=== PATIENT | female | born 1960 | race Caucasian/White ===

== ENCOUNTER 2019-05-04 14:21 | Emergency (ER) | payer OTHER ==
[~2019-05-04] VITALS: Ht 172.7 cm; Wt 59.0 kg
--- NOTE | 2019-05-04 14:41 | ED Chest Pain ---
General Chief Complaint: Chest Pain Stated Complaint: CHEST PAIN Source: patient Exam Limitations: no limitations History of Present Illness Date Seen by Provider: May 04, 2019 Time Seen by Provider: 14:15 Initial Comments Patient is a 58-year-old female with history of CAD with multiple stent placements who presents with intermittent dyspnea with exertion for the past several days. Patient states she is very active and runs on the treadmill every other day and is active at work climbing this stairwells. She states she has been unable to read on the treadmill greater than 3 minutes today without becoming very short of breath and that she has reports palpitations with shortness of breath after climbing stairs at work. Patient states shortness of breath is markedly different than her baseline exercise capacity. Patient has chest pain, chest tightness. Denies leg pain or swelling. Denies paroxysmal nocturnal dyspnea orthopnea. No fever chills, nausea vomiting or sweats. Reports chronic smoker's cough. Denies history of asthma, COPD or PE. No other acute symptoms or complaints. 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 Hernandez Kaplan of [facility]. Timing/Duration: 1 week, intermittent Severity/Quality: moderate Location: other Radiation: other Prior CP/Workup: cardiac cath Modifying Factors: improves with oxygen ASA po APPLIED TECHNOLOGIST: Yes NTG SL APPLIED TECHNOLOGIST: No Associated Symptoms: shortness of breath Allergies and Home Medications Allergies Coded Allergies: No Known Drug Allergies (Unverified , 05/04/19) Patient Home Medication List Home Medication List Reviewed: Yes Review of Systems Review of Systems Constitutional: see HPI EENTM: See HPI Respiratory: See HPI Cardiovascular: See HPI Gastrointestinal: See HPI Genitourinary: See HPI Musculoskeletal: see HPI Skin: see HPI Psychiatric/Neurological: See HPI Endocrine: See HPI Hematologic/Lymphatic: See HPI Past Hzaiixy-Elaplb-Axrtpk Hx Past Med/Social Hx: Reviewed Nursing Past Med/Soc Hx Physical Exam Vital Signs Vital Signs - First Documented 05/04/19 14:34 Temp 96.3 Pulse 75 Resp 18 B/P (MAP) 158/81 (106) O2 Delivery Room Air Capillary Refill : Height, Weight, BMI Height: '" Weight: lbs. oz. kg; BMI Method: General Appearance: No Apparent Distress, WD/WN HEENT: PERRL/EOMI, Normal ENT Inspection, Pharynx Normal Neck: Non Tender, Supple Respiratory: Chest Non Tender, Lungs Clear, Other ([place] diminished breath sounds but otherwise clear.) Cardiovascular: Regular Rate, Rhythm, No Edema, No Gallop, No Murmur, Tachycardia, Other (negative Homans signs.) Neurologic/Psychiatric: Alert, Oriented x3, seamless tube roller II-XII Norm as Tested Skin: Normal Color, Warm/Dry Focused Exam Sepsis Stage: Ruled Out Progress/Results/Core Measures Results/Orders Lab Results Laboratory Tests Test 05/04/19 14:23 Range/Units White Blood Count 7.2 4.3-11.0 10^3/uL Red Blood Count 4.58 4.35-5.85 10^6/uL Hemoglobin 13.5 11.5-16.0 G/DL Hematocrit 41 35-52 % Mean Corpuscular Volume 90 80-99 FL Mean Corpuscular Hemoglobin 29 25-34 PG Mean Corpuscular Hemoglobin Concent 33 32-36 G/DL Red Cell Distribution Width 13.5 10.0-14.5 % Platelet Count 247 130-400 10^3/uL Mean Platelet Volume 9.6 7.4-10.4 FL Neutrophils (%) (Auto) 43 42-75 % Lymphocytes (%) (Auto) 47 H 12-44 % Monocytes (%) (Auto) 8 0-12 % Eosinophils (%) (Auto) 1 0-10 % Basophils (%) (Auto) 1 0-10 % Neutrophils # (Auto) 3.1 1.8-7.8 X 10^3 Lymphocytes # (Auto) 3.4 1.0-4.0 X 10^3 Monocytes # (Auto) 0.6 0.0-1.0 X 10^3 Eosinophils # (Auto) 0.1 0.0-0.3 10^3/uL Basophils # (Auto) 0.1 0.0-0.1 10^3/uL D-Dimer 0.49 0.00-0.49 UG/ML Sodium Level 139 135-145 MMOL/L Potassium Level 3.7 3.6-5.0 MMOL/L Chloride Level 99 98-107 MMOL/L Carbon Dioxide Level 27 21-32 MMOL/L Anion Gap 13 5-14 MMOL/L Blood Urea Nitrogen 10 7-18 MG/DL Creatinine 0.73 0.60-1.30 MG/DL Estimat Glomerular Filtration Rate > 60 BUN/Creatinine Ratio 14 Glucose Level 105 70-105 MG/DL Calcium Level 9.2 8.5-10.1 MG/DL Corrected Calcium 9.0 8.5-10.1 MG/DL Total Bilirubin 0.3 0.1-1.0 MG/DL Aspartate Amino Transf (AST/SGOT) 24 5-34 U/L Alanine Aminotransferase (ALT/SGPT) 22 0-55 U/L Alkaline Phosphatase 88 40-136 U/L Troponin I < 0.30 <0.30 NG/ML Pro-B-Type Natriuretic Peptide 184.9 H <75.0 PG/ML Total Protein 7.1 6.4-8.2 GM/DL Albumin 4.3 3.2-4.5 GM/DL My Orders Orders - TOMI EUCEDA DO Cbc With Automated Diff (05/04/19 14:28) Comprehensive Metabolic Panel (05/04/19 14:28) Troponin I (05/04/19 14:28) Chest 1 View Ap/Pa Only (05/04/19 14:28) Ekg Tracing (05/04/19 14:28) Probnp Fs (05/04/19 14:30) Fibrin Degradation Products (05/04/19 14:31) Vital Signs/I&O 05/04/19 14:34 Temp 96.3 Pulse 75 Resp 18 B/P (MAP) 158/81 (106) O2 Delivery Room Air Departure Communication (Admissions) EKG: Normal sinus rhythm, no acute ST-T wave changes, rate 71. Impression Primary Impression: Dyspnea on exertion Additional Impression: Elevated brain natriuretic peptide (BNP) level Disposition: 01 HOME, SELF-CARE Condition: Improved Departure-Patient Inst. Decision time for Depature: 15:12 Referrals: [facility] (PCP) Primary Care Physician PETER BILL APRN (Family) Primary Care Physician Patient Instructions: Shortness of Breath (Dyspnea) Add. Discharge Instructions: You were evaluated in the emergency department for shortness of breath. Lab EKG and chest x-ray were performed. Your exam and findings are concerning for angina with exertion and exercise. Please avoid strenuous physical activity, stairs, treadmills etc... and contact your household appliances service technician to schedule stress test in the next 2 weeks. In the meantime, if you develop new or worsening symptoms, return to ED. All discharge instructions reviewed with patient and/or family. Voiced understanding. TOMI EUCEDA DO May 04, 2019 14:41
[2019-05-04 14:54] LABS: HEMATOCRIT 41 % (35-52); HEMOGLOBIN 13.5 G/DL (11.5-16.0); MEAN CORPUSCULAR HEMOGLOBIN 29 PG (25-34); MEAN CORPUSCULAR VOLUME 90 FL (80-99); WHITE BLOOD COUNT 7.2 10^3/uL (4.3-11.0)
[2019-05-04 14:55] LABS: BASOPHILS # (AUTO) 0.1 10^3/uL (0.0-0.1); BASOPHILS % (AUTO) 1 % (0-10); EOSINOPHILS # (AUTO) 0.1 10^3/uL (0.0-0.3); EOSINOPHILS % (AUTO) 1 % (0-10); LYMPHOCYTES # (AUTO) 3.4 X 10^3 (1.0-4.0); LYMPHOCYTES % (AUTO) 47 % (12-44); MEAN CORPUSCULAR HGB CONC 33 G/DL (32-36); MEAN PLATELET VOLUME 9.6 FL (7.4-10.4); MONOCYTES # (AUTO) 0.6 X 10^3 (0.0-1.0); MONOCYTES % (AUTO) 8 % (0-12); NEUTROPHILS # (AUTO) 3.1 X 10^3 (1.8-7.8); NEUTROPHILS % (AUTO) 43 % (42-75); PLATELET COUNT 247 10^3/uL (130-400); RED CELL DISTRIBUTION WIDTH 13.5 % (10.0-14.5)
--- NOTE | 2019-05-04 15:00 | Diagnostic Imaging Report ---
INDICATION: Shortness of breath. TIME OF EXAM: 02:34 p.m. COMPARISON: No prior studies are available for comparison. FINDINGS: The heart size is normal. The pulmonary vascularity is unremarkable. The lungs are clear. No infiltrate, effusion or pneumothorax is detected. IMPRESSION: No acute cardiopulmonary process is detected. Dictated by: Dictated on workstation # [id number]
[2019-05-04 15:03] LABS: SODIUM 139 MMOL/L (135-145)
[2019-05-04 15:04] LABS: ALANINE AMINOTRANSFERASE 22 U/L (0-55); ALBUMIN 4.3 GM/DL (3.2-4.5); ALKALINE PHOSPHATASE 88 U/L (40-136); BILIRUBIN,TOTAL 0.3 MG/DL (0.1-1.0); BUN/CREATININE RATIO 14; CALCIUM 9.2 MG/DL (8.5-10.1); CARBON DIOXIDE 27 MMOL/L (21-32); CHLORIDE 99 MMOL/L (98-107); CREATININE SERUM 0.73 MG/DL (0.60-1.30); GFR ESTIMATED > 60; GLUCOSE 105 MG/DL (70-105); POTASSIUM 3.7 MMOL/L (3.6-5.0); TOTAL PROTEIN 7.1 GM/DL (6.4-8.2)
[2019-05-04 15:30] VITALS: BP 122/67
== END 2019-05-04 15:30 | disposition home or self-care (01) ==
LOC: EDUNIT# 14:21 → ER FS 14:23
DX: R06.09 Other forms of dyspnea (principal); R79.89 Other specified abnormal findings of blood chemistry; I25.10 Atherosclerotic heart disease of native coronary artery without angina pectoris; Z95.5 Presence of coronary angioplasty implant and graft
CPT/HCPCS: 36415; 71045; 80053; 83880; 84484; 85025; 85379; 93005

== ENCOUNTER 2020-03-07 20:20 | Emergency (ER) | payer OTHER ==
[~2020-03-07] VITALS: Ht 172.7 cm; Wt 62.7 kg
[2020-03-07 20:28] VITALS: BP 145/76
[2020-03-07] MEDS ORDERED: AMOXICILLIN 500 MG (POLYMOX) CAP PO STA (20:40)
[2020-03-07] MEDS ORDERED: AMOX500C2 PO (20:40)
--- NOTE | 2020-03-07 20:40 | ED EENT ---
History of Present Illness General Chief Complaint: Skin/Wound Problems Stated Complaint: LUMP BEHIND EAR/NECK Source: patient History of Present Illness Date Seen by Provider: Mar 07, 2020 Time Seen by Provider: 20:22 Initial Comments 59-year-old female woke up with area of tenderness and small amount of swelling at the left angle of her jaw. This is been present all day but was worse tonight. She felt like there is increased swelling and was more painful when she was eating. She has pressure sensation in her ear and is concerned she may have an ear infection or something stuck in her ear. She denies any fever or chills. She has no nasal congestion or drainage. She does have dentures but denies any pain or discomfort where they sit against her jaw Allergies and Home Medications Allergies Coded Allergies: No Known Drug Allergies (Unverified , 05/04/19) Home Medications Amoxicillin 500 Mg Capsule, 500 MG PO TID Prescribed by: YOANA BENDER on 03/07/202039 Patient Home Medication List Home Medication List Reviewed: Yes Review of Systems Review of Systems Constitutional: No chills, No dizziness, No fever Eyes: No Symptoms Reported Ears: See HPI Nose: no symptoms reported Mouth: no symptoms reported Throat: no symptoms reported Respiratory: no symptoms reported Gastrointestinal: no symptoms reported Musculoskeletal: no symptoms reported Skin: no symptoms reported Neurological: No Symptoms Reported Past Wkazzsb-Xbiqhp-Fyakhn Hx Past Med/Social Hx: Reviewed Nursing Past Med/Soc Hx Patient Social History Alcohol Use: Denies Use Recreational Drug Use: No Type Used: Cigarettes 2nd Hand Smoke Exposure: No Recent Foreign Travel: No Contact w/Someone Who Travel: No Recent Infectious Disease Expo: No Recent Hopitalizations: No Physical Abuse: No Sexual Abuse: No Mistreated: No Fear: No Seasonal Allergies Seasonal Allergies: No Past Medical History Surgeries: Yes (skin melanoma removed) Coronary Stent Respiratory: No Cardiac: Yes Heart Attack, High Cholesterol, Irregular Heartbeat, Palpitations Neurological: No Genitourinary: No Gastrointestinal: No Musculoskeletal: No Endocrine: No HEENT: No Cancer: Yes Psychosocial: No Integumentary: No Blood Disorders: No Physical Exam Vital Signs Vital Signs - First Documented 03/07/20 20:28 Temp 36.9 Pulse 80 Resp 18 B/P (MAP) 145/76 (99) Pulse Ox 97 O2 Delivery Room Air Height, Weight, BMI Height: 5'8.00" Weight: 130lbs. oz. 58.488353by; 21.00 BMI Method:Stated General Appearance: WD/WN, no apparent distress Eyes: bilateral eye normal inspection, bilateral eye PERRL, bilateral eye EOMI Ears: right ear canal normal, right ear TM normal; left ear auricle normal, left ear foreign body (cerumen impaction on the left) Nose: normal inspection Mouth/Throat: normal mouth inspection (edentulous); No pharynx swelling, No pharynx tenderness Neck: full range of motion, supple, normal inspection, lymphadenopathy (L) (small amount of swelling to the left angle of her jaw with tenderness to palpation) Cardiovascular: normal peripheral pulses, regular rate, rhythm Respiratory: chest non-tender, lungs clear, normal breath sounds Skin: normal color, warm/dry; No rash Progress/Results/Core Measures Results/Orders My Orders Orders - YOANA BENDER MD Amoxicillin Capsule (Polymox Capsule) (03/07/20 20:40) Vital Signs/I&O 03/07/20 20:28 Temp 36.9 Pulse 80 Resp 18 B/P (MAP) 145/76 (99) Pulse Ox 97 O2 Delivery Room Air Blood Pressure Mean: 99 Progress Progress Note : Progress Note Counseled on cerumen impaction. Will cover with an antibiotic for possible ear infection since I cannot visualize the TM on the left side. Counseled on follow- up and return precautions Advised there could be a blocked salivary gland causing some of the symptoms as well but her swelling and pain seems to be more around lymph nodes rather than salivary gland. Departure Impression Primary Impression: Impacted cerumen of left ear Additional Impression: Lymphadenopathy of left cervical region Disposition: 01 HOME, SELF-CARE Condition: Stable Departure-Patient Inst. Decision time for Depature: 20:37 Referrals: [facility]/[place] (PCP) Primary Care Physician PETER BILL APRN (Family) Primary Care Physician Patient Instructions: Ear Wax Impaction (DC), Lymphadenitis (DC) Add. Discharge Instructions: Use ear wax removal drops to help with pain and blocking of the ear canal. Take the full course of antibiotics and check with clinic for continued concerns. If not improving or having more symptoms you may need to see clinic or ENT for further evaluation. All discharge instructions reviewed with patient and/or family. Voiced understanding. Scripts Amoxicillin (Amoxicillin) 500 Mg Capsule 500 MG PO TID for 10 Days, #30 CAP 0 Refills Prov: YOANA BENDER MD 03/07/20 YOANA BENDER MD Mar 07, 2020 20:40
--- OUTSIDE RECORDS SUMMARY | 2020-03-07 22:04 | XMS REPORT | Continuity of Care Document ---
Author Organization Unknown Address Unknown Phone Unavailable Allergies Active Description Code Type Severity Reaction Onset Reported/Identified Relationship to Patient Clinical Status Yes No Known Drug Allergies [id number] Drug Allergy Unknown N/A 05/04/2019 Medications There is no data. Problems Date Dx Coded Attending Type Code Diagnosis Diagnosed By 05/04/2019 TOMI EUCEDA DO, Ot I25.10 ATHSCL HEART DISEASE OF [place] CORONARY 05/04/2019 TOMI EUCEDA DO, Ot R06.09 OTHER FORMS OF DYSPNEA 05/04/2019 TOMI EUCEDA DO, Ot R79.89 OTHER SPECIFIED ABNORMAL FINDINGS OF BLO 05/04/2019 TOMI EUCEDA DO, Ot Z95.5 PRESENCE OF CORONARY ANGIOPLASTY IMPLANT Procedures There is no data. Results Test Result Range Fibrin D-dimer FEU measurement in platel et poor plasma (mass/volume) - 05/04/19 14:23 Fibrin D-dimer FEU measurement in platelet poor plasma (mass/volume) 0.49 ug/mL 0.00-0.49 Complete blood count (CBC) with automate d white blood cell (WBC) differential - 05/04/19 14:23 Blood leukocytes automated count (number/volume) 7.2 10*3/uL 4.3-11.0 Blood erythrocytes automated count (number/volume) 4.58 10*6/uL 4.35-5.85 Venous blood hemoglobin measurement (mass/volume) 13.5 g/dL 11.5-16.0 Blood hematocrit (volume fraction) 41 % 35-52 Automated erythrocyte mean corpuscular volume 90 [ foz_us] 80-99 Automated erythrocyte mean corpuscular h emoglobin (mass per erythrocyte) 29 pg 25-34 Automated erythrocyte mean corpuscular h emoglobin concentration measurement (mass/volume) 33 g/dL 32-36 Automated erythrocyte distribution width ratio 13. 5 % 10.0- 14.5 Automated blood platelet count (count/volume) 247 10*3/uL 130-400 Automated blood platelet mean volume measurement 9.6 [foz_us] 7.4-10.4 Automated blood neutrophils/100 leukocytes 43 % 42-75 Automated blood lymphocytes/100 leukocytes 47 % 12-44 Blood monocytes/100 leukocytes 8 % 0-12 Automated blood eosinophils/100 leukocytes 1 % 0-10 Automated blood basophils/100 leukocytes 1 % 0-10 Blood neutrophils automated count (number/volume) 3.1 10*3 1.8-7.8 Blood lymphocytes automated count (number/volume) 3.4 10*3 1.0-4.0 Blood monocytes automated count (number/volume) 0. 6 10*3 0.0-1.0 Automated eosinophil count 0.1 10*3/uL 0 .0-0.3 Automated blood basophil count (count/volume) 0.1 10*3/uL 0.0-0.1 Comprehensive metabolic panel - 05/04/19 14:23 Serum or plasma sodium measurement (moles/volume) 139 mmol/L 135-145 Serum or plasma potassium measurement (moles/volume) 3.7 mmol/L 3.6-5.0 Serum or plasma chloride measurement (moles/volume) 99 mmol/L 98-107 Carbon dioxide 27 mmol/L 21-32 Serum or plasma anion gap determination (moles/volume) 13 mmol/L 5-14 Serum or plasma urea nitrogen measurement (mass/volume ) 10 mg/dL 7-18 Serum or plasma creatinine measurement (mass/volume) 0.73 mg/dL 0.60-1.30 Serum or plasma urea nitrogen/creatinine mass ratio 14 NRG Serum or plasma creatinine measurement w ith calculation of estimated glomerular filtration rate > NRG Serum or plasma glucose measurement (mass/volume) 105 mg/dL 70-105 Serum or plasma calcium measurement (mass/volume) 9.2 mg/dL 8.5-10.1 Serum or plasma total bilirubin measurement (mass/volu me) 0.3 mg/dL 0.1-1.0 Serum or plasma alkaline phosphatase panda surement (enzymatic activity/volume) 88 U/L 40-136 Serum or plasma aspartate aminotransfera se measurement (enzymatic activity/volume) 24 U/L 5-34 Serum or plasma alanine aminotransferase measurement (enzymatic activity/volume) 22 U/L 0-55 Serum or plasma protein measurement (mass/volume) 7.1 g/dL 6.4-8.2 Serum or plasma albumin measurement (mass/volume) 4.3 g/dL 3.2-4.5 CALCIUM CORRECTED 9.0 mg/dL 8.5-10.1 Serum or plasma troponin i.cardiac measu rement (mass/volume) - 05/04/19 14:23 Serum or plasma troponin i.cardiac measurement (mass/v olume) < ng/mL <0.30 PROBNP FS - 05/04/19 14:23 PROBNP FS 184.9 pg/mL <75.0 Encounters ACCT No. Visit Date/Time Discharge Status Pt. Type Provider Facility Loc./Unit Complaint [id number] 05/04/2019 14:23:00 019 15:30:00 DIS Emergency EUCEDA TOMI WILSON Via [facility] ER FS CHEST PAIN
== END 2020-03-07 20:46 ==
LOC: EDUNIT# 20:20 → ER FS 20:21
DX: H61.22 Impacted cerumen, left ear (principal); R59.1 Generalized enlarged lymph nodes; Z95.5 Presence of coronary angioplasty implant and graft; Z85.828 Personal history of other malignant neoplasm of skin
CPT/HCPCS: 99283

== ENCOUNTER 2022-02-14 18:28 | Emergency (ER) | payer OTHER ==
[~2022-02-14] VITALS: Ht 170.1 cm; Wt 62.7 kg
[~2022-02-14 18:28] MED LIST: AMOX500C2 PO
--- NOTE | 2022-02-14 18:35 | ED Cardiac General ---
History of Present Illness General Stated Complaint: HEARTRATE FLUCTUATING,LETHARGIC,DIZZY History of Present Illness Date Seen by Provider: February 14, 2022 Time Seen by Provider: 18:30 Initial Comments 61-year-old female presents with what she describes as her heart rate feels funny. She cannot necessarily describe it. She reports that it started when she sat down on the stool. That is about 15-20 minutes prior to arrival. Patient does report she has some anxiety but does not feel this is related. She does take lorazepam. Patient reports that she feels short of breath. Patient does have a prior heart history and is concerned because she has had a heart attack with stents in the past. Patient reports she feels little fatigued, mildly dizzy. She reports a mild cough. No fevers or chills. Allergies and Home Medications Allergies Coded Allergies: No Known Drug Allergies (Unverified , 05/04/19) Patient Home Medication List Home Medication List Reviewed: Yes Amoxicillin (Amoxicillin) 500 Mg Capsule, 500 MG PO TID Prescribed by: YOANA BENDER on 03/07/202039 Review of Systems Review of Systems Constitutional: No chills; dizziness, malaise Respiratory: Cough, Shortness of Air Cardiovascular: See HPI; Denies Chest Pain Gastrointestinal: No Symptoms Reported Genitourinary: No Symptoms Reported Musculoskeletal: no symptoms reported Skin: no symptoms reported Psychiatric/Neurological: No Symptoms Reported Endocrine: No Symptoms Reported Hematologic/Lymphatic: No Symptoms Reported Past Nwjmkof-Evrdek-Zcokgj Hx Seasonal Allergies Seasonal Allergies: No Past Medical History Surgeries: Yes (skin melanoma removed) Coronary Stent Respiratory: No Cardiac: Yes Heart Attack, High Cholesterol, Irregular Heartbeat, Palpitations Neurological: No Genitourinary: No Gastrointestinal: No Musculoskeletal: No Endocrine: No HEENT: No Cancer: Yes Psychosocial: No Integumentary: No Blood Disorders: No Physical Exam Vital Signs Vital Signs - First Documented 02/14/22 18:35 Temp 35.4 Pulse 94 Resp 17 B/P (MAP) 178/71 (106) Pulse Ox 100 O2 Delivery Room Air Capillary Refill : Height, Weight, BMI Height: 5'8.00" Weight: 130lbs. oz. 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 Skin: Normal Color, Warm/Dry Progress/Results/Core Measures Results/Orders Lab Results Laboratory Tests Test 02/14/22 18:42 02/14/22 18:43 Range/Units White Blood Count 10.2 4.3-11.0 10^3/uL Red Blood Count 4.58 3.80-5.11 10^6/uL Hemoglobin 13.6 11.5-16.0 g/dL Hematocrit 40 35-52 % Mean Corpuscular Volume 88 80-99 fL Mean Corpuscular Hemoglobin 30 25-34 pg Mean Corpuscular Hemoglobin Concent 34 32-36 g/dL Red Cell Distribution Width 12.9 10.0-14.5 % Platelet Count 259 130-400 10^3/uL Mean Platelet Volume 9.4 9.0-12.2 fL Immature Granulocyte % (Auto) 0 % Neutrophils (%) (Auto) 55 42-75 % Lymphocytes (%) (Auto) 36 12-44 % Monocytes (%) (Auto) 7 0-12 % Eosinophils (%) (Auto) 1 0-10 % Basophils (%) (Auto) 1 0-10 % Neutrophils # (Auto) 5.6 1.8-7.8 10^3/uL Lymphocytes # (Auto) 3.7 1.0-4.0 10^3/uL Monocytes # (Auto) 0.7 0.0-1.0 10^3/uL Eosinophils # (Auto) 0.1 0.0-0.3 10^3/uL Basophils # (Auto) 0.1 0.0-0.1 10^3/uL Immature Granulocyte # (Auto) 0.0 0.0-0.1 10^3/uL Sodium Level 135 135-145 MMOL/L Potassium Level 3.4 L 3.6-5.0 MMOL/L Chloride Level 99 98-107 MMOL/L Carbon Dioxide Level 23 21-32 MMOL/L Anion Gap 13 5-14 MMOL/L Blood Urea Nitrogen 11 7-18 MG/DL Creatinine 0.64 0.60-1.30 MG/DL Estimat Glomerular Filtration Rate 100 BUN/Creatinine Ratio 17 Glucose Level 156 H 70-105 MG/DL Calcium Level 9.3 8.5-10.1 MG/DL Corrected Calcium 8.9 8.5-10.1 MG/DL Magnesium Level 1.8 1.6-2.4 MG/DL Total Bilirubin 0.2 0.1-1.0 MG/DL Aspartate Amino Transf (AST/SGOT) 26 5-34 U/L Alanine Aminotransferase (ALT/SGPT) 29 0-55 U/L Alkaline Phosphatase 96 40-136 U/L Troponin I < 0.30 <0.30 NG/ML C-Reactive Protein < 0.30 <0.50 MG/DL Total Protein 7.5 6.4-8.2 GM/DL Albumin 4.5 3.2-4.5 GM/DL My Orders Orders - KIRSTIN HUGHES DO Troponin I Marlni (02/14/22 18:40) Chest 1 View Ap/Pa Only (02/14/22 18:40) Ekg Tracing (02/14/22 18:40) Ed Iv/Invasive Line Start (02/14/22 18:40) Monitor-Rhythm Ecg Trace Only (02/14/22 18:40) Cbc With Automated Diff (02/14/22 18:40) Comprehensive Metabolic Panel (02/14/22 18:40) Magnesium (02/14/22 18:40) Crp Fs (02/14/22 18:40) Covid 19 Inhouse Test (02/14/22 18:40) Isolation Central Supply Req (02/14/22 18:40) Ekg Tracing (02/14/22 18:52) Vital Signs/I&O 02/14/22 18:35 Temp 35.4 Pulse 94 Resp 17 B/P (MAP) 178/71 (106) Pulse Ox 100 O2 Delivery Room Air Progress Progress Note : Progress Note Patient's symptoms and feelings of palpitation completely resolved. Patient was extremely anxious when she arrived and she calmed down her symptoms improved. I suspect there was probably some underlying anxiety. 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 Patient's feeling a lot better and reports that she is ready be discharged home. She will return to the ER as needed. Initial ECG Impression Date: February 14, 2022 Initial ECG Impression Time: 18:36 Initial ECG Rate: 102 Initial ECG Rhythm: Normal Sinus, PVC, PAC Initial ECG Impression: Nonspecific Changes Comment pt very anxious, poor quality ecg EKG : EKG Time: 19:00 Rate: 73 Rhythm: Normal Sinus ECG Impression: Nonspecific Changes Departure Impression Primary Impression: Intermittent palpitations Disposition: 01 HOME, SELF-CARE Condition: Stable Departure-Patient Inst. Referrals: [facility] (PCP) Primary Care Physician PETER BILL APRN (Family) Primary Care Physician Patient Instructions: Palpitations (DC) Add. Discharge Instructions: If symptoms become more frequent or recurrent please call your splitting machine feeder for further evaluation Return to the ER as needed KIRSTIN HUGHES DO February 14, 2022 18:35
[2022-02-14 18:47] LABS: BASOPHILS # (AUTO) 0.1 10^3/uL (0.0-0.1); BASOPHILS % (AUTO) 1 % (0-10); EOSINOPHILS # (AUTO) 0.1 10^3/uL (0.0-0.3); EOSINOPHILS % (AUTO) 1 % (0-10); HEMATOCRIT 40 % (35-52); HEMOGLOBIN 13.6 g/dL (11.5-16.0); LYMPHOCYTES # (AUTO) 3.7 10^3/uL (1.0-4.0); LYMPHOCYTES % (AUTO) 36 % (12-44); MEAN CORPUSCULAR HEMOGLOBIN 30 pg (25-34); MEAN CORPUSCULAR HGB CONC 34 g/dL (32-36); MEAN CORPUSCULAR VOLUME 88 fL (80-99); MEAN PLATELET VOLUME 9.4 fL (9.0-12.2); MONOCYTES # (AUTO) 0.7 10^3/uL (0.0-1.0); MONOCYTES % (AUTO) 7 % (0-12); NEUTROPHILS # (AUTO) 5.6 10^3/uL (1.8-7.8); NEUTROPHILS % (AUTO) 55 % (42-75); PLATELET COUNT 259 10^3/uL (130-400); WHITE BLOOD COUNT 10.2 10^3/uL (4.3-11.0)
--- NOTE | 2022-02-14 18:54 | Diagnostic Imaging Report ---
CLINICAL INDICATION: Patient with cough, chest pain and palpitations. EXAM: Portable chest x-ray upright view. COMPARISON: Chest x-ray dated 05/04/2019. FINDINGS: Lungs/pleura: Lungs are clear. There is no pneumothorax. There is no pleural effusion. Mediastinum: Unremarkable. Pulmonary vasculature: Unremarkable. Heart: Unremarkable. Bones/extrathoracic soft tissue: There is mild left curvature of the lumbar spine. IMPRESSION: There is no radiographic evidence of acute cardiopulmonary process. Dictated by: Dictated on workstation # [id number]
[2022-02-14 19:05] LABS: CHLORIDE 99 MMOL/L (98-107); POTASSIUM 3.4 MMOL/L (3.6-5.0); SODIUM 135 MMOL/L (135-145)
[2022-02-14 19:06] LABS: ALANINE AMINOTRANSFERASE 29 U/L (0-55); ALBUMIN 4.5 GM/DL (3.2-4.5); ALKALINE PHOSPHATASE 96 U/L (40-136); BILIRUBIN,TOTAL 0.2 MG/DL (0.1-1.0); BUN/CREATININE RATIO 17; CALCIUM 9.3 MG/DL (8.5-10.1); CARBON DIOXIDE 23 MMOL/L (21-32); CREATININE SERUM 0.64 MG/DL (0.60-1.30); GFR ESTIMATED 100; GLUCOSE 156 MG/DL (70-105); MAGNESIUM 1.8 MG/DL (1.6-2.4); TOTAL PROTEIN 7.5 GM/DL (6.4-8.2)
[2022-02-14 19:20] VITALS: BP 146/84
[2022-02-14] MEDS ORDERED: PRAS10TA10 PO (19:49)
[2022-02-14] MEDS ORDERED: ATOR80TA76 PO (19:49)
[2022-02-14] MEDS ORDERED: LORA-405 PO (19:49)
[2022-02-14] MEDS ORDERED: NITR0.4T42 SL (19:49)
[2022-02-14] MEDS ORDERED: METO-333 PO (19:49)
== END 2022-02-14 19:20 | disposition home or self-care (01) ==
LOC: EDUNIT# 18:28 → ER FS 18:29
DX: R00.2 Palpitations (principal); F41.9 Anxiety disorder, unspecified; Z79.899 Other long term (current) drug therapy
CPT/HCPCS: 36415; 71045; 80053; 83735; 84484; 85025; 86141; 87636; 93005; 93041

== ENCOUNTER 2022-03-18 20:45 | Emergency (ER) | payer OTHER ==
[~2022-03-18] VITALS: Ht 170 cm; Wt 63.0 kg
[~2022-03-18 20:45] MED LIST changes: +ATOR80TA76 PO; +LORA-405 PO; +METO-333 PO; +NITR0.4T42 SL; +PRAS10TA10 PO
--- NOTE | 2022-03-18 21:18 | ED EENT ---
History of Present Illness General Chief Complaint: Oral/Throat Problems Stated Complaint: DRY MOUTH Nursing Triage Note: Pt c/o dry mouth x 4 days and reports she has intense epidsodes hunger and feels shakey. Pt denies n/v/d or abd pain. Pt stated "I was one point away from being diabetic so that might be it." Pt blood glucose in ED was 125. History of Present Illness Date Seen by Provider: Mar 18, 2022 Time Seen by Provider: 21:13 Initial Comments 61-year-old female here with complaints of 4 to 5 days worth of symptoms where she will just get really hungry and states she eats a lot. States she gets real jittery and feels like she is almost passing out. She is been trying to eat and she is just not satiated. States she ate from about 9 o'clock this morning until 1. Patient states she not currently feeling this way but she notes when she got home and about an hour or [address]. No abdominal pain. No increased frequency of bowel movements. No vomiting. Allergies and Home Medications Allergies Coded Allergies: No Known Drug Allergies (Unverified , 05/04/19) Patient Home Medication List Home Medication List Reviewed: Yes Atorvastatin Calcium (Atorvastatin Calcium) 80 Mg Tablet, 80 MG PO HS, (Reported) Entered as Reported by: JABIER JOY on 02/14/221948 Lorazepam (Ativan) 1 Mg Tablet, 0.5 MG PO HS, (Reported) Entered as Reported by: JABIER JOY on 02/14/221948 Metoprolol Tartrate (Metoprolol Tartrate) 25 Mg Tablet, 25 MG PO BID, (Reported) Entered as Reported by: JABIER JOY on 02/14/221948 Nitroglycerin (Nitroglycerin) 0.4 Mg Tab.subl, 0.4 MG SL UD, (Reported) Entered as Reported by: JABIER JOY on 02/14/221948 Prasugrel HCl (Prasugrel HCl) 10 Mg Tablet, 10 MG PO DAILY, (Reported) Entered as Reported by: JABIER JOY on 02/14/221948 Review of Systems Review of Systems Constitutional: see HPI Past [id number] Hx Patient Social History Tobacco Use?: Yes Tobacco type used: Cigarettes Smoking Status: Current Everyday Smoker Use of E-Cig and/or Vaping dev: No Substance use?: No Alcohol Use?: No Pt feels they are or have been: No Immunizations Up To Date Influenza Vaccine Up-to-Date: No; Not Current First/Initial COVID19 Vaccinat: denies Seasonal Allergies Seasonal Allergies: No Past Medical History Surgeries: Yes (skin melanoma removed) Coronary Stent Respiratory: No Cardiac: Yes Heart Attack, High Cholesterol, Irregular Heartbeat, Palpitations Neurological: No Genitourinary: No Gastrointestinal: No Musculoskeletal: No Endocrine: No HEENT: No Cancer: Yes Psychosocial: No Integumentary: No Blood Disorders: No Physical Exam Vital Signs Vital Signs - First Documented 03/18/22 20:50 Temp 37.0 Pulse 93 Resp 17 B/P (MAP) 145/79 (101) Pulse Ox 100 O2 Delivery Room Air Height, Weight, BMI Height: 5'8.00" Weight: 130lbs. oz. 58.536693fl; 21.00 BMI Method:Stated General Appearance: WD/WN, no apparent distress Eyes: bilateral eye normal inspection Neck: non-tender, supple Cardiovascular: regular rate, rhythm, no edema, no murmur Respiratory: lungs clear, normal breath sounds Gastrointestinal: normal bowel sounds, non tender, soft, no organomegaly Skin: normal color, warm/dry Progress/Results/Core Measures Results/Orders Lab Results Laboratory Tests Test 03/18/22 20:59 03/18/22 21:30 03/18/22 21:35 Range/Units Glucometer 125 H 70-110 MG/DL White Blood Count 8.4 4.3-11.0 10^3/uL Red Blood Count 4.36 3.80-5.11 10^6/uL Hemoglobin 13.1 11.5-16.0 g/dL Hematocrit 38 35-52 % Mean Corpuscular Volume 88 80-99 fL Mean Corpuscular Hemoglobin 30 25-34 pg Mean Corpuscular Hemoglobin Concent 34 32-36 g/dL Red Cell Distribution Width 13.0 10.0-14.5 % Platelet Count 241 130-400 10^3/uL Mean Platelet Volume 9.6 9.0-12.2 fL Immature Granulocyte % (Auto) 0 % Neutrophils (%) (Auto) 60 42-75 % Lymphocytes (%) (Auto) 31 12-44 % Monocytes (%) (Auto) 7 0-12 % Eosinophils (%) (Auto) 1 0-10 % Basophils (%) (Auto) 1 0-10 % Neutrophils # (Auto) 5.0 1.8-7.8 10^3/uL Lymphocytes # (Auto) 2.6 1.0-4.0 10^3/uL Monocytes # (Auto) 0.6 0.0-1.0 10^3/uL Eosinophils # (Auto) 0.1 0.0-0.3 10^3/uL Basophils # (Auto) 0.1 0.0-0.1 10^3/uL Immature Granulocyte # (Auto) 0.0 0.0-0.1 10^3/uL Sodium Level 137 135-145 MMOL/L Potassium Level 4.1 3.6-5.0 MMOL/L Chloride Level 100 98-107 MMOL/L Carbon Dioxide Level 26 21-32 MMOL/L Anion Gap 11 5-14 MMOL/L Blood Urea Nitrogen 20 H 7-18 MG/DL Creatinine 0.67 0.60-1.30 MG/DL Estimat Glomerular Filtration Rate 99 BUN/Creatinine Ratio 30 Glucose Level 126 H 70-105 MG/DL Calcium Level 9.3 8.5-10.1 MG/DL Corrected Calcium 8.9 8.5-10.1 MG/DL Total Bilirubin 0.2 0.1-1.0 MG/DL Aspartate Amino Transf (AST/SGOT) 23 5-34 U/L Alanine Aminotransferase (ALT/SGPT) 26 0-55 U/L Alkaline Phosphatase 106 40-136 U/L Total Protein 7.1 6.4-8.2 GM/DL Albumin 4.5 3.2-4.5 GM/DL Urine Color PALE YELLOW Urine Clarity CLEAR Urine pH 6.0 5-9 Urine Specific [place] <=1.005 1.016-1.022 Urine Protein NEGATIVE NEGATIVE Urine Glucose (UA) NEGATIVE NEGATIVE Urine Ketones NEGATIVE NEGATIVE Urine Nitrite NEGATIVE NEGATIVE Urine Bilirubin NEGATIVE NEGATIVE Urine Urobilinogen 0.2 < = 1.0 MG/DL Urine Leukocyte Esterase NEGATIVE NEGATIVE Urine RBC (Auto) 1+ H NEGATIVE Urine RBC RARE /HPF Urine WBC 0-2 /HPF Urine Squamous Epithelial Cells 0-2 /HPF Urine Crystals NONE /LPF Urine Bacteria NEGATIVE /HPF Urine Casts NONE /LPF Urine Mucus NEGATIVE /LPF Urine Culture Indicated NO My Orders Orders - TOBY SANTOS MD Thyroid Stimulating Hormone (03/18/22 21:23) Cbc With Automated Diff (03/18/22 21:23) Comprehensive Metabolic Panel (03/18/22 21:23) Ua Culture If Indicated (03/18/22 21:23) Vital Signs/I&O 03/18/22 20:50 Temp 37.0 Pulse 93 Resp 17 B/P (MAP) 145/79 (101) Pulse Ox 100 O2 Delivery Room Air Blood Pressure Mean: 101 Departure Impression Primary Impression: Excessive hunger Disposition: 01 HOME, SELF-CARE Condition: Stable Departure-Patient Inst. Decision time for Depature: 22:38 Referrals: [facility] (PCP) Primary Care Physician PETER BILL APRN (Family) Primary Care Physician Add. Discharge Instructions: eat a well balanced diet. follow up with primary care. All discharge instructions reviewed with patient and/or family. Voiced understanding. TOBY SANTOS MD Mar 18, 2022 21:18
[2022-03-18 21:38] LABS: BASOPHILS # (AUTO) 0.1 10^3/uL (0.0-0.1); BASOPHILS % (AUTO) 1 % (0-10); EOSINOPHILS # (AUTO) 0.1 10^3/uL (0.0-0.3); EOSINOPHILS % (AUTO) 1 % (0-10); HEMATOCRIT 38 % (35-52); HEMOGLOBIN 13.1 g/dL (11.5-16.0); LYMPHOCYTES # (AUTO) 2.6 10^3/uL (1.0-4.0); LYMPHOCYTES % (AUTO) 31 % (12-44); MEAN CORPUSCULAR HEMOGLOBIN 30 pg (25-34); MEAN CORPUSCULAR HGB CONC 34 g/dL (32-36); MEAN CORPUSCULAR VOLUME 88 fL (80-99); MEAN PLATELET VOLUME 9.6 fL (9.0-12.2); MONOCYTES # (AUTO) 0.6 10^3/uL (0.0-1.0); MONOCYTES % (AUTO) 7 % (0-12); NEUTROPHILS % (AUTO) 60 % (42-75); PLATELET COUNT 241 10^3/uL (130-400); WHITE BLOOD COUNT 8.4 10^3/uL (4.3-11.0)
[2022-03-18 21:40] LABS: BILIRUBIN,URINE NEGATIVE (NEGATIVE); CLARITY,URINE CLEAR; GLUCOSE, URINE (UA) NEGATIVE (NEGATIVE); KETONES,URINE NEGATIVE (NEGATIVE); LEUKOCYTE ESTERASE ,URINE NEGATIVE (NEGATIVE); NITRITE,URINE NEGATIVE (NEGATIVE); PROTEIN,URINE NEGATIVE (NEGATIVE)
[2022-03-18 21:47] LABS: BACTERIA,URINE NEGATIVE /HPF; COLOR,URINE PALE YELLOW; RBC,URINE RARE /HPF; SQUAMOUS EPITHELIAL CELL,UR 0-2 /HPF; WBC,URINE 0-2 /HPF
[2022-03-18 21:59] LABS: ALBUMIN 4.5 GM/DL (3.2-4.5); BILIRUBIN,TOTAL 0.2 MG/DL (0.1-1.0); CALCIUM 9.3 MG/DL (8.5-10.1); CREATININE SERUM 0.67 MG/DL (0.60-1.30); POTASSIUM 4.1 MMOL/L (3.6-5.0); TOTAL PROTEIN 7.1 GM/DL (6.4-8.2)
[2022-03-18 22:52] VITALS: BP 140/85
== END 2022-03-18 22:52 | disposition home or self-care (01) ==
LOC: EDUNIT# 20:45 → ER FS 20:47
DX: T73.0XXA Starvation, initial encounter (principal); F17.210 Nicotine dependence, cigarettes, uncomplicated; Z28.310 Unvaccinated for COVID-19
CPT/HCPCS: 36415; 80053; 81000; 82947; 84443; 85025; 99282